=== PATIENT | male | born 1975 | race Caucasian/White ===

== ENCOUNTER 2016-10-10 06:04 | Emergency (ER) | payer MEDICAID ==
[~2016-10-10] VITALS: Ht 175.3 cm; Wt 86.6 kg
[~2016-10-10 06:04] MED LIST: CELEXA10 MG; COL100 PO; NORCO1 TA1 PO
[2016-10-10 06:50] LABS: BASOPHIL % 0.3 % (0-2); PLATELET COUNT 207 x10^3mcL (130-400); RED CELL DISTRIBUTION WIDTH 13.4 % (11.5-14.5)
[2016-10-10 07:01] LABS: ALBUMIN 4.4 g/dL (3.4-5.0); ALKALINE PHOSPHATASE 74 U/L (46-116); ALT/SGPT 22 U/L (16-63); AST/SGOT 14 U/L (15-37); BILIRUBIN TOTAL 0.5 mg/dL (0.20-1.00); CALCIUM 8.8 mg/dL (8.5-10.1); CARBON DIOXIDE 23.2 mmol/L (21-32); CHLORIDE SERUM 106 mmol/L (98-107); CREATININE SERUM 1.1 mg/dL (0.7-1.3); GFR1 > 60 mL/min; GLUCOSE SERUM 139 mg/dL (74-106); LIPASE 99 IU/L (73-393); SODIUM SERUM 140 mmol/L (136-145)
[2016-10-10 07:02] LABS: AMYLASE 119 U/L (25-115)
[2016-10-10 08:00] LABS: UA SPECIFIC GRAVITY 1.025 (1.005-1.035); microscopic required? YES; urine erythrocyte 3+ (NEGATIVE)
[2016-10-10 08:34] VITALS: BP 154/90
== END 2016-10-10 08:34 | disposition home or self-care (01) ==
LOC: ED 06:04
PROVIDERS: Emergency Medicine
DX: N20.0 Calculus of kidney (principal); E87.6 Hypokalemia
CPT/HCPCS: J1885; J7030

== ENCOUNTER 2018-03-30 19:28 | Emergency (ER) | payer MEDICAID ==
[~2018-03-30] VITALS: Ht 170.2 cm; Wt 89.4 kg
[2018-03-30 19:36] VITALS: Ht 170.2 cm; Wt 89.4 kg
[2018-03-30 22:50] VITALS: BP 116/73
== END 2018-03-30 22:50 | disposition home or self-care (01) ==
LOC: ED 19:28
DX: S52.572A Other intraarticular fracture of lower end of left radius, initial encounter for closed fracture (principal); S52.612A Displaced fracture of left ulna styloid process, initial encounter for closed fracture; Z90.89 Acquired absence of other organs; W01.0XXA Fall on same level from slipping, tripping and stumbling without subsequent striking against object, initial encounter; Y93.89 Activity, other specified; Y92.89 Other specified places as the place of occurrence of the external cause; Y99.8 Other external cause status
CPT/HCPCS: Q0162